=== PATIENT | male | born 1965 | race Caucasian/White ===

== ENCOUNTER 2018-08-08 13:23 | Emergency (ER) | payer BC ==
--- NOTE | 2018-08-08 14:01 | ED.PDOC ---
History of Present Illness - General Chief Complaint: Laceration Stated Complaint: Laceration to the left thumb Time Seen by Provider: 08/08/18 13:35 Source: patient Exam Limitations: no limitations - History of Present Illness Initial Comments: the patient is a 53-year-old male presented to the emergency room secondary to laceration dorsal aspect of his left thumb over the metacarpal phalangeal joint. Laceration is 3.5 cm in length. He is neurovascularly intact. It does not appear to extend down to the joint and there is no obvious tendon laceration. Range of motion is preserved. He is vascularly intact. No other injuries. He injured it while working outside. Timing/Duration: 1/2 hour Severity: moderate Improving Factors: nothing Worsening Factors: nothing Associated Symptoms: denies symptoms Allergies/Adverse Reactions: Allergies NO KNOWN ALLERGY Allergy (Verified 08/08/18 13:49) Home Medications: Ambulatory Orders Sulfa/Trimeth 800/160 (Ds) Tab [Bactrim DS Tab] 1 ea PO BID #14 tab 08/08/18 Review of Systems - Review of Systems Constitutional: States: no symptoms reported EENTM: States: no symptoms reported Respiratory: States: no symptoms reported Cardiology: States: no symptoms reported Gastrointestinal/Abdominal: States: no symptoms reported Genitourinary: States: no symptoms reported Musculoskeletal: States: no symptoms reported Skin: States: see HPI Neurological: States: no symptoms reported Endocrine: States: no symptoms reported All other Systems: No Change from Baseline Past Medical History (General) - Patient Medical History Hx Stroke: No Hx of COPD: No Hx Cardiac Disorders: No Hx Hypertension: Yes Hx Diabetes: No Hx Cancer: No Surgical History: tonsillectomy, other - Vaccination History Hx Tetanus, Diphtheria Vaccination: Yes Hx Influenza Vaccination: Yes Hx Pneumococcal Vaccination: No - Social History Hx Tobacco Use: Yes Hx Alcohol Use: Yes Hx Substance Use: No Hx Substance Use Treatment: No Hx Depression: No - Female History Patient is a Female of Child Bearing Age (10 -59 yrs old): No Patient : No Family Medical History - Family History Mother Family History: Unknown Living Status: Unknown Physical Exam - Physical Exam General Appearance: Alert, Comfortable, No apparent distress Eye Exam: bilateral normal Ears, Nose, Throat: hearing grossly normal Neck: full range of motion Respiratory: no respiratory distress, no accessory muscle use Cardiovascular/Chest: normal peripheral pulses, no edema Peripheral Pulses: radial,right: 2+, radial,left: 2+ Rectal Exam: deferred Extremity: normal range of motion, no pedal edema, normal capillary refill, other - see history of present illness 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 risks and benefits of repair were explained prior and patient did agree to proceed. Wound was irrigated with water and then cleaned with hydrogen peroxide. Xylocaine without epinephrine was used as a local anesthetic 3 cc. 6 simple sutures of 3-0 Ethilon were used for reapproximation. Estimated blood loss is 15 cc. Bactrim was given prophylactically and will be continued for the next 5 days. ER warnings were given for any worsening. Sutures can come out in 10 days. Avoid flexing the thumb for the next 2 weeks in order to prevent stitches from being pulled out. Departure - Departure Clinical Impression: Accidental laceration ICD-10 Supporting Text: initial visit, accidental lacerationleft thumb. Disposition: Discharge to Home or Self Care Condition: Fair Departure Forms: ED Discharge - Pt. Copy, Patient Portal Self Enrollment Instructions: DI for Laceration Repair, DI for Laceration Repair -- Simple Diet: regular diet Activity: increase activity as tolerated Prescriptions: Sulfa/Trimeth 800/160 (Ds) Tab [Bactrim DS Tab] 1 ea PO BID #14 tab Home Medications: Ambulatory Orders Sulfa/Trimeth 800/160 (Ds) Tab [Bactrim DS Tab] 1 ea PO BID #14 tab 08/08/18 Additional Instructions: the patient is a 53-year-old male presenting to emergency room secondary to laceration to the dorsal aspect of his left thumb. Wound was irrigated with water and then cleaned with hydrogen peroxide. Xylocaine without epinephrine was used as a local anesthetic 3 cc. 6 simple sutures of 3-0 Ethilon were used for reapproximation. Estimated blood loss is 15 cc. Bactrim was given prophylactically and will be continued for the next 5 days. ER warnings were given for any worsening. Sutures can come out in 10 days. Avoid flexing the thumb for the next 2 weeks in order to prevent stitches from being pulled out.
[2018-08-08] MEDS ORDERED: SULFA/TRIMETH 800/160 (DS) TAB 1 EA TAB PO ONE (14:04)
[2018-08-08] MEDS ORDERED: NEOMYCIN-BACITRACIN-POLYMYXIN 0.9 GM UD TOP ONE (14:19)
[2018-08-08 14:30] VITALS: BP 152/102; TEMP 98.3; O2SAT 100
== END 2018-08-08 14:30 | disposition home or self-care (01) ==
LOC: ER 13:23
DX: S61.012A Laceration without foreign body of left thumb without damage to nail, initial encounter (principal); I10 Essential (primary) hypertension; W23.0XXA Caught, crushed, jammed, or pinched between moving objects, initial encounter; Y92.89 Other specified places as the place of occurrence of the external cause; Z87.891 Personal history of nicotine dependence